=== PATIENT | female | born 1960 | race Caucasian/White ===

== ENCOUNTER 2024-02-09 01:55 | Emergency (ER) | payer MEDICAID, OTHER ==
[~2024-02-09] VITALS: Ht 157.5 cm; Wt 70.3 kg
[2024-02-09 02:19] VITALS: BP 125/73; PULSE 80; RESP 16; TEMP 97; O2SAT 97
[2024-02-09 02:30] VITALS: O2SAT 97
--- NOTE | 2024-02-09 02:33 | NUR ---
TO BED 9 VIA W/C FOLLOWING TRIAGE
--- NOTE | 2024-02-09 02:35 | NUR ---
BIB W/C WITH C/O RIGHT SHOULDER PAIN, LEFT KNEE PAIN RIGHT ABDOMINAL PAIN, PELVIC PAIN, RIGHT SIDE OF NECK PAIN S/P SLIP AND FALL COMING OUT OF SHOWER 2 NIGHTS AGO. PT TOOK TYLENOL AND TRAMADOL WITHOUT RELIEF. PMH : ASTHMA, HTN, NEEDS HIP REPLACENT
[2024-02-09] MEDS: KETOROLAC 30 MG/ML VIAL IM ONE (03:12)
--- NOTE | 2024-02-09 03:16 | NUR ---
xray at bedside
[2024-02-09] MEDS ORDERED: CYCL-711 PO (04:08)
--- NOTE | 2024-02-09 04:16 | NUR ---
pt ready for discharge, pt is calling her son for pickling solution maker.
--- NOTE | 2024-02-09 04:30 | NUR ---
Patient discharged with v/s stable. Written and verbal after care instructions given and explained. Patient alert, oriented and verbalized understanding of instructions. Wheel Chair Assisted with by caregiver. All questions addressed prior to discharge. ID band removed. Patient advised to follow up with PMD. Rx of cyclobenzaprine hcl given. Patient educated on indication of medication including possible reaction and side effects. Opportunity to ask questions provided and answered.
== END 2024-02-09 04:30 | disposition home or self-care (01) ==
LOC: MED 01:55
DX: S43.401A Unspecified sprain of right shoulder joint, initial encounter (principal); M25.562 Pain in left knee; Z79.899 Other long term (current) drug therapy; W18.39XA Other fall on same level, initial encounter; Y92.89 Other specified places as the place of occurrence of the external cause; Y93.89 Activity, other specified; Y99.8 Other external cause status
CPT/HCPCS: 73030; 73562; 96372; 99284; J1885; Q0092

== ENCOUNTER 2024-02-11 15:58 | Emergency (ER) | payer MEDICAID ==
[~2024-02-11] VITALS: Ht 160 cm; Wt 68.0 kg
[~2024-02-11 15:58] MED LIST: CYCL-711 PO
[2024-02-11 16:14] VITALS: BP 123/79; PULSE 96; RESP 20; TEMP 98.1; O2SAT 95
[2024-02-11] MEDS ORDERED: BACL10TA4 PO (16:55)
[2024-02-11] MEDS ORDERED: HYDR-5080 PO (16:55)
[2024-02-11] MEDS ORDERED: MSCON15 PO (16:55)
== END 2024-02-11 17:07 | disposition home or self-care (01) ==
LOC: MED 15:58
DX: M25.559 Pain in unspecified hip (principal); G89.29 Other chronic pain; F41.9 Anxiety disorder, unspecified; Z76.0 Encounter for issue of repeat prescription; J45.909 Unspecified asthma, uncomplicated; I10 Essential (primary) hypertension; Z98.890 Other specified postprocedural states; Z79.899 Other long term (current) drug therapy
CPT/HCPCS: 99281